=== PATIENT | female | born 1950 | race Caucasian/White ===

== ENCOUNTER 2020-05-28 00:52 | Inpatient (IN) | payer OTHER ==
[~2020-05-28] VITALS: Ht 152.4 cm; Wt 70.8 kg
[~2020-05-28 00:52] MED LIST: SYNTHROID50 MCG
[2020-05-28] MEDS ORDERED: METFORMIN HCL850 MG (01:19)
[2020-05-28] MEDS ORDERED: LEVOTHYROXINE25 MC2 (01:19)
[2020-05-28] MEDS ORDERED: FENOFIBRATE50 MG (01:20)
[2020-05-28] MEDS ORDERED: ATORVASTATIN CA40 MG (01:20)
[2020-05-28] MEDS ORDERED: LOSARTAN POTASS50 MG (01:20)
[2020-05-29] MEDS ORDERED: METFORMIN HCL850 M1 (13:23)
[2020-06-08] MEDS ORDERED: JANTOVEN2.5 MG PO (16:02)
== END 2020-06-08 17:43 | disposition home or self-care (01) | DRG 176 ==
LOC: ER 00:52 → MEDI 10:26 → MEDJ 10:26 → MEDI 13:16 → ICU 05-31 02:59 → MEDJ 06-01 22:35
PROVIDERS: ADMIT Internal Medicine; ATTEND Internal Medicine
PROC: 4A033R1 Measurement of Arterial Saturation, Peripheral, Percutaneous Approach (ICD-10-PCS; principal; 2020-05-28)
PROC: B24BZZZ Ultrasonography of Heart with Aorta (ICD-10-PCS; 2020-05-28)
PROC: 3E0F7SF Introduction of Other Gas into Respiratory Tract, Via Natural or Artificial Opening (ICD-10-PCS; 2020-05-28)
PROC: 3E0F7GC Introduction of Other Therapeutic Substance into Respiratory Tract, Via Natural or Artificial Opening (ICD-10-PCS; 2020-05-28)
PROC: 3E04317 Introduction of Other Thrombolytic into Central Vein, Percutaneous Approach (ICD-10-PCS; 2020-05-29)
PROC: 4A12X4Z Monitoring of Cardiac Electrical Activity, External Approach (ICD-10-PCS; 2020-05-29)
PROC: 02HV33Z Insertion of Infusion Device into Superior Vena Cava, Percutaneous Approach (ICD-10-PCS; 2020-05-29)
PROC: BB24ZZZ Computerized Tomography (CT Scan) of Bilateral Lungs (ICD-10-PCS; 2020-05-29)
DX: I26.92 Saddle embolus of pulmonary artery without acute cor pulmonale (principal); B37.0 Candidal stomatitis; I80.222 Phlebitis and thrombophlebitis of left popliteal vein; E87.0 Hyperosmolality and hypernatremia; I10 Essential (primary) hypertension; E11.65 Type 2 diabetes mellitus with hyperglycemia; J20.9 Acute bronchitis, unspecified; R09.02 Hypoxemia; Z79.84 Long term (current) use of oral hypoglycemic drugs; D69.49 Other primary thrombocytopenia; Z79.01 Long term (current) use of anticoagulants; E03.8 Other specified hypothyroidism

== ENCOUNTER 2020-06-09 15:27 | Outpatient (CLI) | payer OTHER ==
[~2020-06-09 15:27] MED LIST changes: +ATORVASTATIN CA40 MG; +FENOFIBRATE50 MG; +JANTOVEN2.5 MG PO; +LEVOTHYROXINE25 MC2; +LOSARTAN POTASS50 MG; +METFORMIN HCL850 M1; +METFORMIN HCL850 MG
== END 2020-06-09 15:37 | disposition home or self-care (01) ==
LOC: LAB 15:27
DX: I26.99 Other pulmonary embolism without acute cor pulmonale (principal)

== ENCOUNTER 2020-06-16 13:19 | Outpatient (CLI) | payer OTHER | END 2020-06-16 15:00 | disposition home or self-care (01) | LOC: LAB 13:19 | PROVIDERS: ATTEND Internal Medicine | DX: D68.8 Other specified coagulation defects (principal); I26.99 Other pulmonary embolism without acute cor pulmonale ==

== ENCOUNTER 2020-07-05 06:13 | Outpatient (CLI) | payer OTHER | END 2020-07-05 06:30 | disposition home or self-care (01) | LOC: LAB 06:13 | PROVIDERS: ATTEND Internal Medicine Hematology & Oncology | DX: I10 Essential (primary) hypertension (principal); E78.2 Mixed hyperlipidemia; E11.9 Type 2 diabetes mellitus without complications; E03.8 Other specified hypothyroidism; I26.99 Other pulmonary embolism without acute cor pulmonale; I82.432 Acute embolism and thrombosis of left popliteal vein; D68.51 Activated protein C resistance; D68.59 Other primary thrombophilia; E72.12 Methylenetetrahydrofolate reductase deficiency; D68.52 Prothrombin gene mutation ==

== ENCOUNTER → 2020-08-25 | Outpatient (CLI) | payer OTHER | END | disposition home or self-care (01) | LOC: LAB 11:05 | PROVIDERS: ATTEND Radiology Diagnostic Radiology | DX: D51.1 Vitamin B12 deficiency anemia due to selective vitamin B12 malabsorption with proteinuria (principal); D51.0 Vitamin B12 deficiency anemia due to intrinsic factor deficiency; E06.3 Autoimmune thyroiditis; D68.8 Other specified coagulation defects; I10 Essential (primary) hypertension; E11.9 Type 2 diabetes mellitus without complications; E03.8 Other specified hypothyroidism; I26.99 Other pulmonary embolism without acute cor pulmonale; I82.432 Acute embolism and thrombosis of left popliteal vein ==

== ENCOUNTER → 2020-08-29 07:58 | Outpatient (CLI) | payer OTHER | END | disposition home or self-care (01) | LOC: LAB 07:58 | PROVIDERS: ATTEND Internal Medicine Hematology & Oncology | DX: I10 Essential (primary) hypertension (principal); D68.61 Antiphospholipid syndrome; D68.59 Other primary thrombophilia; E72.12 Methylenetetrahydrofolate reductase deficiency; D68.52 Prothrombin gene mutation; E78.2 Mixed hyperlipidemia; E11.9 Type 2 diabetes mellitus without complications; E03.8 Other specified hypothyroidism; I26.99 Other pulmonary embolism without acute cor pulmonale; I82.432 Acute embolism and thrombosis of left popliteal vein ==

== ENCOUNTER 2020-08-29 09:01 | Outpatient (CLI) | payer OTHER | END 2020-08-29 09:12 | disposition home or self-care (01) | LOC: TOM 09:01 | PROVIDERS: ATTEND Internal Medicine Hematology & Oncology | DX: I26.99 Other pulmonary embolism without acute cor pulmonale (principal); I82.432 Acute embolism and thrombosis of left popliteal vein; E03.8 Other specified hypothyroidism; E11.9 Type 2 diabetes mellitus without complications; E78.2 Mixed hyperlipidemia; I10 Essential (primary) hypertension | CPT/HCPCS: 71275; Q9965 ==

== ENCOUNTER → 2020-08-29 11:26 | Outpatient (CLI) | payer OTHER | END | disposition home or self-care (01) | LOC: NUCLEAR 11:26 | PROVIDERS: ATTEND Internal Medicine Hematology & Oncology | DX: I26.99 Other pulmonary embolism without acute cor pulmonale (principal); I82.432 Acute embolism and thrombosis of left popliteal vein ==

== ENCOUNTER 2020-11-21 08:00 | Outpatient (CLI) | payer OTHER | END 2020-11-21 08:30 | disposition home or self-care (01) | LOC: PPH VACUNA 08:00 | DX: Z23 Encounter for immunization (principal) ==

== ENCOUNTER → 2021-05-25 11:58 | Outpatient (CLI) | payer OTHER ==
[~2021-05-25 11:58] MED LIST changes: +VITAMIN D3250 MCG PO; +WARFARIN SODIU2.5 MG PO; +WARFARIN SODIUM3 MG PO
== END | disposition home or self-care (01) ==
LOC: NUCLEAR 05-24 09:00
PROVIDERS: ATTEND Internal Medicine Pulmonary Disease
DX: I27.82 Chronic pulmonary embolism (principal); I26.01 Septic pulmonary embolism with acute cor pulmonale
CPT/HCPCS: 78580; A9540

== ENCOUNTER 2021-05-29 10:19 | Emergency (ER) | payer OTHER ==
[~2021-05-29] VITALS: Ht 152.4 cm; Wt 74.4 kg
[~2021-05-29 10:19] MED LIST changes: -VITAMIN D3250 MCG PO; -WARFARIN SODIU2.5 MG PO; -WARFARIN SODIUM3 MG PO
[2021-05-29] MEDS ORDERED: WARFARIN SODIU2.5 MG PO (10:41)
[2021-05-29] MEDS ORDERED: VITAMIN D3250 MCG PO (10:41)
[2021-05-29] MEDS ORDERED: WARFARIN SODIUM3 MG PO (10:42)
== END 2021-05-29 13:59 | disposition home or self-care (01) ==
LOC: ER 10:19
DX: K13.79 Other lesions of oral mucosa (principal); E11.9 Type 2 diabetes mellitus without complications; Z79.84 Long term (current) use of oral hypoglycemic drugs; I10 Essential (primary) hypertension